=== PATIENT | female | born 1970 | race Caucasian/White ===

== ENCOUNTER 2016-12-05 12:35 | Emergency (ER) | payer OTHER ==
[~2016-12-05] VITALS: Ht 165.1 cm; Wt 70.8 kg
[2016-12-05 12:42] VITALS: BP 134/77
--- NOTE | 2016-12-05 13:00 | NUR ---
pt refused ekg
--- NOTE | 2016-12-05 13:10 | NUR ---
PT REFUSED BLOOD DRAW AND IV ACCESS. MADE AWARE.
--- NOTE | 2016-12-05 13:38 | NUR ---
Patient does not wish to proceed with medical care recommended by Dr. Vazquez. Patient given information related to possible complications, up to and including , which could occur as a result of leaving the hospital at this time. Patient verbalizes understanding of risks involved due to leaving against medical advice. Patient has signed AMA form.
== END 2016-12-05 13:46 ==
LOC: ER 12:40
DX: R07.9 Chest pain, unspecified (principal); J45.909 Unspecified asthma, uncomplicated; F17.200 Nicotine dependence, unspecified, uncomplicated; R11.0 Nausea
CPT/HCPCS: A4606; Z7610

== ENCOUNTER 2020-04-02 12:58 | Emergency (ER) | payer MEDICAID, OTHER ==
[~2020-04-02] VITALS: Ht 157.5 cm; Wt 68.9 kg
--- NOTE | 2020-04-02 13:05 | NUR ---
GERARDO RICHARDSON 89 from [facility] "room mate witnessed a tonic clonic seizure. Heroin addict last use 03/14". On room air, breathing evenly and unlabored. connected to the monitor and pulse ox. kept comfortable, will continue to monitor accordingly.
[2020-04-02] MEDS ORDERED: LEVETIRACETAM (500MG) 500 MG in IV NS 0.9% 100 ML IV ONE (13:30)
[2020-04-02 13:57] LABS: BASOPHILS % (AUTO) 0.6 % (0.0-2.0); EOSINOPHILS % (AUTO) 3.1 % (0.0-6.0); HEMATOCRIT 45 % (33-45); HEMOGLOBIN 14.7 g/dL (11.5-14.8); LYMPHOCYTES # (AUTO) 2.7 /CMM (0.8-4.8); LYMPHOCYTES % (AUTO) 42.5 % (20.0-44.0); MEAN CORPUSCULAR HGB CONC 32 g/dl (31.0-36.0); MEAN CORPUSCULAR VOLUME 80 fL (82-100); MONOCYTES # (AUTO) 0.4 /CMM (0.1-1.30); MONOCYTES % (AUTO) 6.2 % (2.0-12.0); NEUTROPHILS % (AUTO) 47.6 % (43.0-81.0); PLATELET COUNT (AUTO) 369 /CMM (150-450); RED BLOOD CELL COUNT(AUTO) 5.71 MIL/uL (4.0-5.2); WHITE BLOOD COUNT (AUTO) 6.3 K/uL (4.3-11.0)
--- NOTE | 2020-04-02 14:03 | NUR ---
friend shorty called: left contact # [phone]
[2020-04-02 14:10] LABS: ALANINE AMINOTRANSFERASE 24 U/L (12-78); ALBUMIN 3.7 g/dL (3.4-5.0); ALKALINE PHOSPHATASE 102 U/L (46-116); ASPARTATE AMINOTRANSFERASE 17 U/L (15-37); BILIRUBIN,DIRECT 0.1 mg/dL (0.0-0.2); BILIRUBIN,TOTAL 0.1 mg/dL (0.2-1.0); CALCIUM, SERUM 9.5 mg/dL (8.5-10.1); CARBON DIOXIDE 26 mmol/L (21-32); CHLORIDE 104 mmol/L (98-107); CREATININE 0.8 mg/dL (0.6-1.3); GLUCOSE 105 mg/dL (74-106); POTASSIUM 3.8 mmol/L (3.5-5.1); SODIUM SERUM 138 mmol/L (136-145); UREA NITROGEN, BLOOD 12 mg/dL (7-18)
[2020-04-02 14:16] LABS: ALCOHOL, BLOOD < 3 mg/dL (0-0)
[2020-04-02 15:49] VITALS: BP 110/61
--- NOTE | 2020-04-02 15:50 | NUR ---
patient picked up by private vehicle from [facility] in no distress. denies any pain or discomfort at this time.
== END 2020-04-02 15:49 ==
LOC: ER 13:01
DX: R56.9 Unspecified convulsions (principal); F11.10 Opioid abuse, uncomplicated; F17.200 Nicotine dependence, unspecified, uncomplicated; J45.909 Unspecified asthma, uncomplicated; Z98.890 Other specified postprocedural states
CPT/HCPCS: 36415; 70450; 71045; 80048; 80076; 80305; 80307; 85025; 96365; 99285; J1953; J7030; G0480

== ENCOUNTER 2020-04-24 21:34 | Emergency (ER) | payer MEDICAID ==
[~2020-04-24] VITALS: Ht 152.4 cm; Wt 63.5 kg
--- NOTE | 2020-04-24 21:45 | NUR ---
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 PT AAOX4, VSS, RESPIRATIONS EVEN AND UNLABORED ON RA W/ NAD NOTED. PT CONNECTED TO THE PLASTICS WORKER AND POX.
--- NOTE | 2020-04-24 22:16 | NUR ---
PACKAGING SALES CONSULTANT AT BEDSIDE FOR BLOOD DRAW
[2020-04-24] MEDS ORDERED: LEVETIRACETAM (500MG) 500 MG/5 ML VIAL IV ONE ×2 (22:21→22:28)
[2020-04-24] MEDS ORDERED: LEVETIRACETAM (500MG) 1,000 MG in IV NS 0.9% 100 ML IV SCH (22:30)
[2020-04-24 22:31] LABS: BASOPHILS % (AUTO) 0.8 % (0.0-2.0); EOSINOPHILS % (AUTO) 2.9 % (0.0-6.0); HEMATOCRIT 44 % (33-45); HEMOGLOBIN 14.3 g/dL (11.5-14.8); LYMPHOCYTES # (AUTO) 2.9 /CMM (0.8-4.8); LYMPHOCYTES % (AUTO) 51.7 % (20.0-44.0); MEAN CORPUSCULAR HGB CONC 33 g/dl (31.0-36.0); MEAN CORPUSCULAR VOLUME 82 fL (82-100); MONOCYTES # (AUTO) 0.5 /CMM (0.1-1.30); MONOCYTES % (AUTO) 8.4 % (2.0-12.0); NEUTROPHILS % (AUTO) 36.2 % (43.0-81.0); PLATELET COUNT (AUTO) 256 /CMM (150-450); RED BLOOD CELL COUNT(AUTO) 5.35 MIL/uL (4.0-5.2); WHITE BLOOD COUNT (AUTO) 5.6 K/uL (4.3-11.0)
--- NOTE | 2020-04-24 22:38 | NUR ---
[facility] [phone]
[2020-04-24 22:45] LABS: ALBUMIN 3.8 g/dL (3.4-5.0); BILIRUBIN,DIRECT 0.1 mg/dL (0.0-0.2); BILIRUBIN,TOTAL 0.2 mg/dL (0.2-1.0); CALCIUM, SERUM 9.2 mg/dL (8.5-10.1); CREATININE 0.8 mg/dL (0.6-1.3); POTASSIUM 3.4 mmol/L (3.5-5.1); TOTAL PROTEIN, SERUM 8.4 g/dL (6.4-8.2)
--- NOTE | 2020-04-24 23:15 | NUR ---
URINE COLLECTED AND SENT TO LAB
--- NOTE | 2020-04-24 23:15 | NUR ---
taken to ct
--- NOTE | 2020-04-24 23:16 | NUR ---
PT TAKEN TO CT
--- NOTE | 2020-04-25 00:15 | NUR ---
CALLED [facility] FOR JUNIOR ART DIRECTOR
--- NOTE | 2020-04-25 00:38 | NUR ---
Patient discharged to home in stable condition. Written and verbal after care instructions given. Patient verbalizes understanding of instruction.IV removed. Catheter intact and site benign. Pressure and 4x4 applied to site. No bleeding noted.pt. ambulatory with a steady gait
[2020-04-25 00:39] VITALS: BP 105/81
== END 2020-04-25 00:39 | disposition home or self-care (01) ==
LOC: ER 21:35
DX: R56.9 Unspecified convulsions (principal); J45.909 Unspecified asthma, uncomplicated; Z98.51 Tubal ligation status
CPT/HCPCS: 36415; 70450; 80048; 80076; 80305; 84702; 84703; 85025; 96365; 99284; J1953 ×2; J7030

== ENCOUNTER 2020-12-05 15:12 | Emergency (ER) | payer MEDICAID, OTHER ==
[~2020-12-05] VITALS: Ht 167.6 cm; Wt 68.9 kg
--- NOTE | 2020-12-05 15:30 | NUR ---
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 PT VERBALLY RESPONSIVE STS "I FAINTED." PATIENT ALERT AND ORIENTED TO SELF, ANSWER QUESTIONS BUT SLOWLY RESPONSIVE. CHANGED INTO A GOWN, ATTACHED TO THE FOLEY ARTIST.
--- NOTE | 2020-12-05 15:34 | NUR ---
[facility] [phone]
[2020-12-05] MEDS ORDERED: IV NS 0.9% 1,000 ML BAG IV ONE (16:00)
[2020-12-05] MEDS ORDERED: LEVETIRACETAM (500MG) 1,000 MG in IV NS 0.9% 100 ML IV SCH (16:00)
[2020-12-05 16:20] LABS: BASOPHILS # (AUTO) 0.1 /CMM (0.0-0.2); BASOPHILS % (AUTO) 1.1 % (0.0-2.0); EOSINOPHILS % (AUTO) 0.6 % (0.0-6.0); HEMATOCRIT 44 % (33-45); LYMPHOCYTES # (AUTO) 1.3 /CMM (0.8-4.8); LYMPHOCYTES % (AUTO) 19.6 % (20.0-44.0); MEAN CORPUSCULAR HGB CONC 34 g/dl (31.0-36.0); MEAN CORPUSCULAR VOLUME 93 fL (82-100); MONOCYTES # (AUTO) 0.6 /CMM (0.1-1.30); MONOCYTES % (AUTO) 8.6 % (2.0-12.0); NEUTROPHILS # (AUTO) 4.7 /CMM (1.8-8.9); NEUTROPHILS % (AUTO) 70.1 % (43.0-81.0); PLATELET COUNT (AUTO) 281 /CMM (150-450); RED BLOOD CELL COUNT(AUTO) 4.68 MIL/uL (4.0-5.2); WHITE BLOOD COUNT (AUTO) 6.7 K/uL (4.3-11.0)
--- NOTE | 2020-12-05 16:35 | NUR ---
[facility] ADMIN CALLED AND LEFT CONTACT # [phone]
--- NOTE | 2020-12-05 16:50 | NUR ---
patient takent o ct.
[2020-12-05 17:11] LABS: ALANINE AMINOTRANSFERASE 15 U/L (12-78); ALBUMIN 4.2 g/dL (3.4-5.0); ALCOHOL, BLOOD < 3 mg/dL (0-0); ALKALINE PHOSPHATASE 132 U/L (46-116); ASPARTATE AMINOTRANSFERASE 17 U/L (15-37); BILIRUBIN,DIRECT 0.2 mg/dL (0.0-0.2); BILIRUBIN,TOTAL 0.4 mg/dL (0.2-1.0); CALCIUM, SERUM 9.3 mg/dL (8.5-10.1); CARBON DIOXIDE 22 mmol/L (21-32); CHLORIDE 101 mmol/L (98-107); CREATININE 0.9 mg/dL (0.6-1.3); GLUCOSE 111 mg/dL (74-106); POTASSIUM 3.4 mmol/L (3.5-5.1); SODIUM SERUM 136 mmol/L (136-145); TOTAL PROTEIN, SERUM 8.4 g/dL (6.4-8.2); UREA NITROGEN, BLOOD 21 mg/dL (7-18)
--- NOTE | 2020-12-05 17:16 | NUR ---
patient unable to give urine sample at this time, informed dr. wong
[2020-12-05] MEDS ORDERED: LEVE500T9 PO (17:52)
[2020-12-05] MEDS ORDERED: POTASSIUM CHLORIDE 20 MEQ TAB.PRT.SR PO ONE ×2 (18:00→18:15)
--- NOTE | 2020-12-05 18:26 | NUR ---
PATIENT A/OX4, BREATHING EVEN AND UNLABORED, NO DISTRESS NOTED, VITALS STABLE. KEPT COMFORTABLE. PATIENT WAS ABLE TO PROVIDE URINE.
--- NOTE | 2020-12-05 18:34 | NUR ---
CALLED FACILITY. WILL NURSE LDR PATIENT. ETA 40 MINS.
--- NOTE | 2020-12-05 19:17 | NUR ---
PATIENT A/OX4, BREATHING EVEN AND UNLABORED, NO SOB NOTED, NEEDS ATTENDED, KEPT COMFORTABLE. IV removed. Catheter intact and site benign. Pressure and 4x4 applied to site. No bleeding noted.Patient discharged to facility in stable condition. Written and verbal after care instructions given. Patient verbalizes understanding of instruction. Nydia from facility outside to pick pulling machine tender the patient.
[2020-12-05 19:18] VITALS: BP 114/69
== END 2020-12-05 19:18 | disposition home or self-care (01) ==
LOC: ER 15:12
DX: G40.909 Epilepsy, unspecified, not intractable, without status epilepticus (principal); E87.6 Hypokalemia; R00.0 Tachycardia, unspecified; E03.9 Hypothyroidism, unspecified; F17.200 Nicotine dependence, unspecified, uncomplicated; Z98.51 Tubal ligation status; Z79.899 Other long term (current) drug therapy
CPT/HCPCS: 36415; 70450; 71045; 72125; 80048; 80076; 80307; 80320; 82962; 85025; 85730; 93005; 96365; 99285; J1953; J7030 ×2; G0480

== ENCOUNTER 2021-01-24 18:02 | Emergency (ER) | payer OTHER ==
[~2021-01-24] VITALS: Ht 154.9 cm; Wt 63.5 kg
[~2021-01-24 18:02] MED LIST: LEVE500T9 PO
[2021-01-24 18:14] VITALS: BP 129/60
[2021-01-24] MEDS ORDERED: LEVO100T9 PO (18:22)
[2021-01-24] MEDS ORDERED: LEVE500T9 PO (18:22)
[2021-01-24 19:43] LABS: BILIRUBIN,URINE NEGATIVE (NEGATIVE); COLOR,URINE YELLOW (YELLOW); LEUKOCYTE ESTERASE ,URINE MODERATE (NEGATIVE); NITRITE, URINE POSITIVE (NEGATIVE); PROTEIN,URINE 30 mg/dl (NEGATIVE); UGLUCOSE NEGATIVE (NEGATIVE); UROBILINOGEN,URINE 0.2 EU/dL (0.2)
[2021-01-24 19:48] LABS: WBC,URINE 51-80 /HPF (0-3)
[2021-01-24 19:49] LABS: BACTERIA,URINE Many /HPF (None Seen); SQUAMOUS EPITHELIAL CELL,UR Few /HPF (None Seen)
[2021-01-24] MEDS ORDERED: CEPH500T PO (19:51)
[2021-01-24] MEDS ORDERED: PHEN-705 PO (19:51)
--- NOTE | 2021-01-24 20:00 | NUR ---
ATTEMPTED TO DISCHARGE PT WITH DISCHARGE INSTRUCTIONS. PT LEFT WITHOUT INSTRUCTIONS.
== END 2021-01-24 20:09 | disposition home or self-care (01) ==
LOC: ER 18:02
DX: N39.0 Urinary tract infection, site not specified (principal); E03.9 Hypothyroidism, unspecified; G40.909 Epilepsy, unspecified, not intractable, without status epilepticus; J44.9 Chronic obstructive pulmonary disease, unspecified; F17.200 Nicotine dependence, unspecified, uncomplicated; Z98.51 Tubal ligation status; Z79.899 Other long term (current) drug therapy; Z76.0 Encounter for issue of repeat prescription
CPT/HCPCS: 81001; 84703-TC; 87086-TC; 87186-TC

== ENCOUNTER 2021-02-06 00:17 | Emergency (ER) | payer OTHER ==
[~2021-02-06] VITALS: Ht 152.4 cm; Wt 61.2 kg
[~2021-02-06 00:17] MED LIST changes: +CEPH500T PO; +LEVO100T9 PO; +PHEN-705 PO
--- NOTE | 2021-02-06 02:15 | NUR ---
called pt for triage no answer
--- NOTE | 2021-02-06 02:33 | NUR ---
CALLED PT FOR TRIAGE. NO ANSWER
[2021-02-06] MEDS ORDERED: IV NS 0.9% 1,000 ML BAG IV ONE (04:00)
[2021-02-06] MEDS ORDERED: KETOROLAC TROMETHAMINE INJ 30 MG/ML VIAL IV ONE (04:00)
[2021-02-06] MEDS ORDERED: CEFTRIAXONE 1GM BAG (ER ONLY) 50 ML IV ONE ×2 (04:00→04:02)
[2021-02-06] MEDS ORDERED: KETOROLAC TROMETHAMINE 15 MG/ML VIAL ONE (04:02)
--- NOTE | 2021-02-06 04:02 | NUR ---
PT AAOX4. AMBULATORY, BIBS FOR C/O BILATERAL FLANK PAIN X 1 WK AND FEVER SINCE YESTERDAY. PLACED IN BED 12 ON MONITOR AND PULSE OX. NO ACUTE DISTRESS NOTED.
[2021-02-06] MEDS ORDERED: IOHEXOL-300 100 ML VIAL IV ONE (04:38)
[2021-02-06] MEDS ORDERED: IV NS 0.9% 250 ML IV ONE (04:38)
[2021-02-06] MEDS ORDERED: CT SWABBABLE VALVE TRANS SET 1 EA INFUS.SET MC ONE (04:38)
[2021-02-06 04:51] LABS: BASOPHILS % (AUTO) 0.3 % (0.0-2.0); EOSINOPHILS % (AUTO) 5.1 % (0.0-6.0); HEMATOCRIT 38 % (33-45); HEMOGLOBIN 12.5 g/dL (11.5-14.8); LYMPHOCYTES # (AUTO) 0.7 /CMM (0.8-4.8); MEAN CORPUSCULAR HGB CONC 33 g/dl (31.0-36.0); MEAN CORPUSCULAR VOLUME 92 fL (82-100); MONOCYTES # (AUTO) 0.5 /CMM (0.1-1.30); MONOCYTES % (AUTO) 7.5 % (2.0-12.0); NEUTROPHILS # (AUTO) 5.6 /CMM (1.8-8.9); NEUTROPHILS % (AUTO) 77.1 % (43.0-81.0); PLATELET COUNT (AUTO) 357 /CMM (150-450); WHITE BLOOD COUNT (AUTO) 7.3 K/uL (4.3-11.0)
[2021-02-06 04:56] LABS: BILIRUBIN,URINE SMALL (NEGATIVE); COLOR,URINE YELLOW (YELLOW); LEUKOCYTE ESTERASE ,URINE MODERATE (NEGATIVE); NITRITE, URINE POSITIVE (NEGATIVE); PROTEIN,URINE 30 mg/dl (NEGATIVE); UGLUCOSE NEGATIVE (NEGATIVE); UROBILINOGEN,URINE 0.2 EU/dL (0.2)
[2021-02-06 05:01] LABS: CALCIUM, SERUM 8.8 mg/dL (8.5-10.1); CARBON DIOXIDE 30 mmol/L (21-32); CHLORIDE 100 mmol/L (98-107); CREATININE 0.8 mg/dL (0.6-1.3); GLUCOSE 108 mg/dL (74-106); POTASSIUM 3.2 mmol/L (3.5-5.1); SODIUM SERUM 136 mmol/L (136-145); UREA NITROGEN, BLOOD 10 mg/dL (7-18)
[2021-02-06 05:07] LABS: ALANINE AMINOTRANSFERASE 29 U/L (12-78); ALBUMIN 2.9 g/dL (3.4-5.0); ALKALINE PHOSPHATASE 101 U/L (46-116); ASPARTATE AMINOTRANSFERASE 29 U/L (15-37); BILIRUBIN,DIRECT 0.1 mg/dL (0.0-0.2); BILIRUBIN,TOTAL 0.3 mg/dL (0.2-1.0); LIPASE 26 U/L (73-393); TOTAL PROTEIN, SERUM 8.1 g/dL (6.4-8.2)
[2021-02-06 05:16] LABS: BACTERIA,URINE Many /HPF (None Seen); CALCIUM OXALATE CRYSTALS,UR Moderate /HPF (None Seen); SQUAMOUS EPITHELIAL CELL,UR Few /HPF (None Seen); WBC,URINE TOO NUMEROUS TO COUN /HPF (0-3)
--- NOTE | 2021-02-06 05:20 | NUR ---
BROUGHT TO CT
[2021-02-06] MEDS ORDERED: LEVO100T9 PO (06:03)
[2021-02-06] MEDS ORDERED: LEVE500T9 PO (06:03)
[2021-02-06] MEDS ORDERED: CEFD300C3 PO (06:03)
--- NOTE | 2021-02-06 07:35 | NUR ---
IV removed. Catheter intact and site benign. Pressure and 4x4 applied to site. No bleeding noted.
--- NOTE | 2021-02-06 07:41 | NUR ---
PATIENT A/OX4, BREATHING EVEN AND UNLABORED, NO SOB NOTED. NEEDS ATTENDED. DENIES NAUSEA AND VOMITING AT THIS TIME. Patient given written and verbal discharge instructions. Patient verbalizes understanding of instructions. Patient is ambulatory with steady gait. Refuses offer of long term placement. Patient given list of available shelters in surrounding area.
[2021-02-06 07:45] VITALS: BP 127/78
== END 2021-02-06 07:46 | disposition home or self-care (01) ==
LOC: ER 00:19
DX: N12 Tubulo-interstitial nephritis, not specified as acute or chronic (principal); E03.9 Hypothyroidism, unspecified; F17.200 Nicotine dependence, unspecified, uncomplicated; Z98.890 Other specified postprocedural states; Z59.0 Homelessness
CPT/HCPCS: 36415; 74177; 80048; 80076; 81001; 83605; 83690; 84484; 84703; 85025; 85730; 87040 ×2; 87086; 96365; 96375; 99285; J0696; J1885; J7030 ×2; J7050; Q9967; 87186-TC

== ENCOUNTER 2022-06-23 00:13 | Emergency (ER) | payer OTHER ==
[~2022-06-23] VITALS: Ht 160 cm; Wt 66.2 kg
[~2022-06-23 00:13] MED LIST changes: +CEFD300C3 PO
--- NOTE | 2022-06-23 00:47 | NUR ---
BIBRA60 FROM [facility] C/O N/V AND DIARRHEA FOR THE PAST HOUR TESTED COVID + SATURDAY. PT A/OX4. RESP EVEN AND NON LABORED. CONNECTED PT TO POX AND MONITOR. SAFETY & CONTACT ISOLATION MEASURES IN PLACE.
[2022-06-23] MEDS ORDERED: IV NS 0.9% 1,000 ML BAG IV ONE (01:30)
[2022-06-23] MEDS ORDERED: ONDANSETRON HCL/PF 4 MG/2 ML VIAL IVP ONE (01:30)
[2022-06-23] MEDS ORDERED: ONDANSETRON HCL/PF 4 MG/2 ML VIAL ONE (01:36)
--- NOTE | 2022-06-23 02:21 | NUR ---
TELEPHONE DIRECTORY DELIVERER AT PT'S BEDSIDE
--- NOTE | 2022-06-23 02:45 | NUR ---
Urine collected and sent to lab
--- NOTE | 2022-06-23 02:46 | NUR ---
PHLEBOTMIST NOT ABLE TO DRAW PT'S BLOOD. PT HARD STICK. DR. SWAIN DO AWARE.
[2022-06-23 03:00] LABS: BILIRUBIN,URINE NEGATIVE (NEGATIVE); COLOR,URINE YELLOW (YELLOW); LEUKOCYTE ESTERASE ,URINE LARGE (NEGATIVE); NITRITE, URINE POSITIVE (NEGATIVE); PROTEIN,URINE NEGATIVE (NEGATIVE); UGLUCOSE NEGATIVE (NEGATIVE); UROBILINOGEN,URINE 0.2 EU/dL (0.2)
[2022-06-23 03:03] LABS: BACTERIA,URINE Moderate /HPF (None Seen); SQUAMOUS EPITHELIAL CELL,UR Few /HPF (None Seen)
--- NOTE | 2022-06-23 03:35 | NUR ---
PT VERBALIZED THAT HER NAUSEA IS BETTER AND VERBALIZED THAT SHE IS THIRSTY. PO CHALLENGE TOLERATED BY THE PT. MADE AWARE
[2022-06-23] MEDS ORDERED: NITROFURANTOIN/MONOHYDRATE MACROCRYSTALS 100 MG CAPSULE ONE (04:28)
[2022-06-23] MEDS ORDERED: NITROFURANTOIN/MONOHYDRATE MACROCRYSTALS 100 MG CAPSULE PO ONE (04:30)
[2022-06-23 05:16] LABS: BASOPHILS % (AUTO) 0.2 % (0.0-2.0); EOSINOPHILS % (AUTO) 0.7 % (0.0-6.0); HEMATOCRIT 51 % (33-45); LYMPHOCYTES # (AUTO) 1.2 K/uL (0.8-4.8); LYMPHOCYTES % (AUTO) 11.5 % (20.0-44.0); MEAN CORPUSCULAR HGB CONC 33 g/dl (31.0-36.0); MEAN CORPUSCULAR VOLUME 91 fL (82-100); MONOCYTES # (AUTO) 0.6 K/uL (0.1-1.30); MONOCYTES % (AUTO) 5.9 % (2.0-12.0); NEUTROPHILS # (AUTO) 8.3 K/uL (1.8-8.9); NEUTROPHILS % (AUTO) 81.7 % (43.0-81.0); PLATELET COUNT (AUTO) 199 K/uL (150-450); RED BLOOD CELL COUNT(AUTO) 5.62 MIL/uL (4.0-5.2); WHITE BLOOD COUNT (AUTO) 10.1 K/uL (4.3-11.0)
[2022-06-23 05:33] LABS: CALCIUM, SERUM 9.1 mg/dL (8.5-10.1); CREATININE 0.8 mg/dL (0.6-1.3); POTASSIUM 4.2 mmol/L (3.5-5.1)
[2022-06-23 05:40] LABS: ALBUMIN 3.7 g/dL (3.4-5.0); BILIRUBIN,DIRECT 0.1 mg/dL (0.0-0.2); BILIRUBIN,TOTAL 0.3 mg/dL (0.2-1.0); TOTAL PROTEIN, SERUM 8.1 g/dL (6.4-8.2)
[2022-06-23] MEDS ORDERED: ONDA4TAB5 PO (05:41)
[2022-06-23] MEDS ORDERED: NITR100C6 PO (05:41)
--- NOTE | 2022-06-23 05:49 | NUR ---
IV REMOVED FOR DISCHARGE
--- NOTE | 2022-06-23 05:52 | NUR ---
Patient discharged to home in stable condition. Written and verbal after care instructions given. Patient verbalizes understanding of instruction.
--- NOTE | 2022-06-23 05:52 | NUR ---
Patient discharged to home in stable condition. Written and verbal after care instructions given. Patient verbalizes understanding of instruction.
[2022-06-23 05:54] VITALS: BP 135/80
== END 2022-06-23 05:52 | disposition home or self-care (01) ==
LOC: ER 00:30
DX: R11.2 Nausea with vomiting, unspecified (principal); R19.7 Diarrhea, unspecified; N39.0 Urinary tract infection, site not specified; E03.9 Hypothyroidism, unspecified; F17.200 Nicotine dependence, unspecified, uncomplicated; Z86.16 Personal history of COVID-19; Z59.00 Homelessness unspecified; Z79.899 Other long term (current) drug therapy
CPT/HCPCS: 99283; 96374; 85025; 80048; 87086; 83690; 80076; 81001; 36415; J2405; J7030

== ENCOUNTER 2022-09-04 12:43 | Emergency (ER) | payer OTHER ==
[~2022-09-04] VITALS: Ht 154.9 cm; Wt 62.6 kg
[~2022-09-04 12:43] MED LIST changes: +NITR100C6 PO; +ONDA4TAB5 PO
--- NOTE | 2022-09-04 12:45 | NUR ---
[facility] C/O LOW ABDOMINAL/BACK PAIN AND CHILLS SINCE YESTERDAY. AMBULATORY, PLACED ON BED, IN PAIN 04/25 PS
--- NOTE | 2022-09-04 13:20 | NUR ---
BATTALION FIRE CHIEF AT BEDSIDE
[2022-09-04 13:37] LABS: BILIRUBIN,URINE 1+ (NEGATIVE); COLOR,URINE DARK YELLOW (YELLOW); LEUKOCYTE ESTERASE ,URINE 1+ (NEGATIVE); NITRITE, URINE NEGATIVE (NEGATIVE); PH,URINE 5.5 (5.0-8.0); PROTEIN,URINE NEGATIVE (NEGATIVE); UGLUCOSE NEGATIVE (NEGATIVE); UROBILINOGEN,URINE 0.2 EU/dL (0.2)
[2022-09-04 13:39] LABS: BACTERIA,URINE Moderate /HPF (None Seen); SQUAMOUS EPITHELIAL CELL,UR Few /HPF (None Seen)
[2022-09-04 14:14] LABS: CALCIUM, SERUM 8.8 mg/dL (8.5-10.1); CREATININE 0.7 mg/dL (0.6-1.3); POTASSIUM 3.6 mmol/L (3.5-5.1)
[2022-09-04 14:19] LABS: ALBUMIN 3.6 g/dL (3.4-5.0); BILIRUBIN,DIRECT 0.1 mg/dL (0.0-0.2); BILIRUBIN,TOTAL 0.3 mg/dL (0.2-1.0); TOTAL PROTEIN, SERUM 7.7 g/dL (6.4-8.2)
[2022-09-04 14:46] LABS: BASOPHILS # (AUTO) 0.1 K/uL (0.0-0.2); BASOPHILS % (AUTO) 0.6 % (0.0-2.0); EOSINOPHILS % (AUTO) 1.2 % (0.0-6.0); HEMATOCRIT 47 % (33-45); HEMOGLOBIN 15.7 g/dL (11.5-14.8); LYMPHOCYTES # (AUTO) 2.5 K/uL (0.8-4.8); LYMPHOCYTES % (AUTO) 28.5 % (20.0-44.0); MEAN CORPUSCULAR HGB CONC 33 g/dl (31.0-36.0); MEAN CORPUSCULAR VOLUME 90 fL (82-100); MONOCYTES # (AUTO) 0.6 K/uL (0.1-1.30); MONOCYTES % (AUTO) 7.2 % (2.0-12.0); NEUTROPHILS # (AUTO) 5.6 K/uL (1.8-8.9); NEUTROPHILS % (AUTO) 62.5 % (43.0-81.0); PLATELET COUNT (AUTO) 227 K/uL (150-450); RED BLOOD CELL COUNT(AUTO) 5.23 MIL/uL (4.0-5.2); WHITE BLOOD COUNT (AUTO) 8.9 K/uL (4.3-11.0)
[2022-09-04] MEDS ORDERED: CEFTRIAXONE 1 G VIAL ONE (15:16)
[2022-09-04] MEDS ORDERED: LIDOCAINE /MPF 1% VIAL 5 ML VIAL ONE (15:16)
[2022-09-04] MEDS ORDERED: CEFTRIAXONE 1 G VIAL IM ONE (15:30)
[2022-09-04] MEDS ORDERED: CEPH500C2 PO (15:54)
--- NOTE | 2022-09-04 16:04 | NUR ---
Patient discharged to home in stable condition. Written and verbal after care instructions given. Patient verbalizes understanding of instruction.
[2022-09-04 16:07] VITALS: BP 110/75
== END 2022-09-04 16:04 | disposition home or self-care (01) ==
LOC: ER 12:43
DX: N12 Tubulo-interstitial nephritis, not specified as acute or chronic (principal); E03.9 Hypothyroidism, unspecified; F17.200 Nicotine dependence, unspecified, uncomplicated; Z79.899 Other long term (current) drug therapy
CPT/HCPCS: 99283; 96372; 85025; 80048; 87086; 83690; 80076; 81001; 36415; J0696; J3490

== ENCOUNTER 2023-03-05 18:22 | Emergency (ER) | payer OTHER ==
[~2023-03-05] VITALS: Ht 154.9 cm; Wt 61.2 kg
[~2023-03-05 18:22] MED LIST changes: +CEPH500C2 PO
[2023-03-05 18:32] VITALS: TEMP 98.4
--- NOTE | 2023-03-05 18:32 | NUR ---
PT SELF PRESENTS TO ED, C/O CHEST DISCOMFORT, TIGHTNESS X 5 DAYS. ALSO C/O OF COUGH AND CONGESTION, FEVER. AND STATES SHE HAD A SYNCOPAL EPISODE AT AROUND 1600. GOWNED AND PLACED ON MONITOR. AWAITING MD REED.
--- NOTE | 2023-03-05 18:55 | NUR ---
RADIOLOGY AT BEDSIDE FOR CHEST XRAY.
--- NOTE | 2023-03-05 19:20 | NUR ---
REPORT GIVEN TO HOME ECONOMICS EXTENSION WORKER NURSE MAU PELAEZ FOR KARIN.
--- NOTE | 2023-03-05 19:23 | NUR ---
Blood collected, sent to lab
--- NOTE | 2023-03-05 19:27 | NUR ---
Nader AOx4, able to express her own concerns. Nader states she woke up with chest pressure that radiates to right underarm. Pain now 3/. Discussed plan of care, nader verbalized agreement.
[2023-03-05 19:55] LABS: BASOPHILS % (AUTO) 0.3 % (0.0-2.0); HEMATOCRIT 44 % (33-45); HEMOGLOBIN 14.8 g/dL (11.5-14.8); LYMPHOCYTES # (AUTO) 2.4 K/uL (0.8-4.8); LYMPHOCYTES % (AUTO) 22.1 % (20.0-44.0); MEAN CORPUSCULAR HGB CONC 33 g/dl (31.0-36.0); MEAN CORPUSCULAR VOLUME 88 fL (82-100); MONOCYTES % (AUTO) 9.2 % (2.0-12.0); NEUTROPHILS # (AUTO) 7.5 K/uL (1.8-8.9); NEUTROPHILS % (AUTO) 68.4 % (43.0-81.0); PLATELET COUNT (AUTO) 266 K/uL (150-450); RED BLOOD CELL COUNT(AUTO) 5.01 MIL/uL (4.0-5.2); WHITE BLOOD COUNT (AUTO) 10.9 K/uL (4.3-11.0)
[2023-03-05] MEDS ORDERED: KETOROLAC TROMETHAMINE INJ 60 MG/2 ML VIAL IM ONE (20:00)
[2023-03-05] MEDS ORDERED: KETOROLAC TROMETHAMINE INJ 30 MG/ML VIAL ONE (20:00)
--- NOTE | 2023-03-05 20:05 | NUR ---
Urine collected, sent to lab
[2023-03-05 20:09] LABS: CALCIUM, SERUM 9.5 mg/dL (8.5-10.1); CARBON DIOXIDE 25 mmol/L (21-32); CHLORIDE 103 mmol/L (98-107); CREATININE 0.7 mg/dL (0.6-1.3); GLUCOSE 87 mg/dL (74-106); POTASSIUM 3.3 mmol/L (3.5-5.1); SODIUM SERUM 139 mmol/L (136-145); UREA NITROGEN, BLOOD 13 mg/dL (7-18)
[2023-03-05 20:16] LABS: ALANINE AMINOTRANSFERASE 16 U/L (12-78); ALBUMIN 3.6 g/dL (3.4-5.0); ALKALINE PHOSPHATASE 94 U/L (46-116); ASPARTATE AMINOTRANSFERASE 11 U/L (15-37); BILIRUBIN,DIRECT 0.1 mg/dL (0.0-0.2); BILIRUBIN,TOTAL 0.3 mg/dL (0.2-1.0); TOTAL PROTEIN, SERUM 8.7 g/dL (6.4-8.2)
[2023-03-05 20:57] LABS: BILIRUBIN,URINE NEGATIVE (NEGATIVE); COLOR,URINE YELLOW (YELLOW); LEUKOCYTE ESTERASE ,URINE 1+ (NEGATIVE); NITRITE, URINE NEGATIVE (NEGATIVE); PH,URINE 6.5 (5.0-8.0); PROTEIN,URINE NEGATIVE (NEGATIVE); UGLUCOSE NEGATIVE (NEGATIVE); UROBILINOGEN,URINE 0.2 EU/dL (0.2)
[2023-03-05] MEDS ORDERED: LORAZEPAM 0.5 MG TABLET PO ONE (21:00)
[2023-03-05] MEDS ORDERED: LORAZEPAM 0.5 MG TABLET ONE (21:04)
[2023-03-05 21:11] VITALS: BP 120/64
[2023-03-05 21:17] LABS: BACTERIA,URINE Moderate /HPF (None Seen); SQUAMOUS EPITHELIAL CELL,UR Moderate /HPF (None Seen)
== END 2023-03-05 21:13 | disposition home or self-care (01) ==
LOC: ER 18:24
DX: J20.9 Acute bronchitis, unspecified (principal); R07.89 Other chest pain; E03.9 Hypothyroidism, unspecified; F17.200 Nicotine dependence, unspecified, uncomplicated; Z79.899 Other long term (current) drug therapy; Z88.1 Allergy status to other antibiotic agents
CPT/HCPCS: 99285; 71045; 96372; 93005; 85025; 80048; 87086; 80076; 81001; 36415; 84484; J1885

== ENCOUNTER 2023-12-08 08:28 | Emergency (ER) | payer OTHER ==
[~2023-12-08] VITALS: Ht 154.9 cm; Wt 62.6 kg
[2023-12-08] MEDS ORDERED: ACETAMINOPHEN ES 500 MG TABLET ONE (08:53)
[2023-12-08] MEDS ORDERED: CYCLOBENZAPRINE 10 MG TABLET ONE (08:53)
[2023-12-08] MEDS ORDERED: IBUPROFEN 400 MG TABLET ONE (08:54)
[2023-12-08] MEDS: CYCLOBENZAPRINE 10 MG TABLET PO ONE (09:23)
[2023-12-08] MEDS: IBUPROFEN 400 MG TABLET PO ONE (09:23)
[2023-12-08] MEDS: ACETAMINOPHEN ES 500 MG TABLET PO ONE (09:24)
[2023-12-08] MEDS ORDERED: LORAZEPAM 0.5 MG TABLET ONE (10:03)
[2023-12-08] MEDS: LORAZEPAM 0.5 MG TABLET PO ONE (10:04)
[2023-12-08] MEDS ORDERED: LORA-259 PO (10:11)
[2023-12-08 10:34] VITALS: BP 112/89; TEMP 98; O2SAT 100
== END 2023-12-08 10:35 | disposition home or self-care (01) ==
LOC: ER 08:37
DX: S06.0X0A Concussion without loss of consciousness, initial encounter (principal); S13.4XXA Sprain of ligaments of cervical spine, initial encounter; I10 Essential (primary) hypertension; E03.9 Hypothyroidism, unspecified; F17.200 Nicotine dependence, unspecified, uncomplicated; Z79.899 Other long term (current) drug therapy; Z98.890 Other specified postprocedural states; Z88.1 Allergy status to other antibiotic agents; V89.0XXA Person injured in unspecified motor-vehicle accident, nontraffic, initial encounter; Y93.89 Activity, other specified; Y92.89 Other specified places as the place of occurrence of the external cause; Y99.8 Other external cause status
CPT/HCPCS: 70450-TC; 70486-TC; 72125-TC; 73130-TC

== ENCOUNTER 2024-07-07 23:51 | Emergency (ER) | payer OTHER ==
[~2024-07-07] VITALS: Ht 157.5 cm; Wt 74.8 kg
[~2024-07-07 23:51] MED LIST changes: +LORA-259 PO
[2024-07-08 00:39] LABS: BASOPHILS # (AUTO) 0.1 K/uL (0.0-0.2); BASOPHILS % (AUTO) 0.8 % (0.0-2.0); EOSINOPHILS # (AUTO) 0.3 K/uL (0.0-0.7); EOSINOPHILS % (AUTO) 3.5 % (0.0-6.0); HEMATOCRIT 45 % (33-45); HEMOGLOBIN 14.9 g/dL (11.5-14.8); LYMPHOCYTES % (AUTO) 38.1 % (20.0-44.0); MEAN CORPUSCULAR HEMOGLOBIN 31 PG (26.0-33.0); MEAN CORPUSCULAR HGB CONC 34 g/dl (31.0-36.0); MEAN CORPUSCULAR VOLUME 91 fL (82-100); MONOCYTES # (AUTO) 0.6 K/uL (0.1-1.30); MONOCYTES % (AUTO) 7.9 % (2.0-12.0); NEUTROPHILS % (AUTO) 49.7 % (43.0-81.0); PLATELET COUNT (AUTO) 248 K/uL (150-450); RED BLOOD CELL COUNT(AUTO) 4.89 MIL/uL (4.0-5.2); RED CELL DISTRIBUTION WIDTH 13.6 % (11.5-15.0)
[2024-07-08 00:48] LABS: CALCIUM, SERUM 9.2 mg/dL (8.5-10.1); CARBON DIOXIDE 28 mmol/L (21-32); CHLORIDE 105 mmol/L (98-107); CREATININE 0.8 mg/dL (0.6-1.3); GLUCOSE 90 mg/dL (74-106); POTASSIUM 3.7 mmol/L (3.5-5.1); SODIUM SERUM 140 mmol/L (136-145); UREA NITROGEN, BLOOD 15 mg/dL (7-18)
[2024-07-08] MEDS: IV NS 0.9% 1,000 ML BAG IV ONE (01:06)
[2024-07-08] MEDS ORDERED: hydrOXYzine 10 MG TABLET ONE (01:33)
[2024-07-08] MEDS: hydrOXYzine 10 MG TABLET PO ONE ×2 (01:37→01:43)
[2024-07-08] MEDS: hydrOXYzine HCL SYRUP 10 MG/5 ML UDC PO PRN (01:41)
[2024-07-08 02:32] VITALS: BP 133/88; TEMP 98.6; O2SAT 99
== END 2024-07-08 02:33 | disposition home or self-care (01) ==
LOC: ER 23:53
DX: R07.9 Chest pain, unspecified (principal); R55 Syncope and collapse; R11.2 Nausea with vomiting, unspecified; F41.0 Panic disorder [episodic paroxysmal anxiety]; E03.9 Hypothyroidism, unspecified; F17.200 Nicotine dependence, unspecified, uncomplicated; I10 Essential (primary) hypertension; Z88.0 Allergy status to penicillin; Z98.51 Tubal ligation status
CPT/HCPCS: 99285; 96360; 70450; 71045; 93005; 85025; 80048; 36415; 84484; Q0177; J7030